=== PATIENT | female | born 2000 | race Caucasian/White ===

== ENCOUNTER 2023-12-16 15:03 | Emergency (ER) | payer SELFPAY ==
[2023-12-16 15:11] VITALS: BP 146/77
[2023-12-16 15:40] LABS: COVID-19 Antigen Negative (Negative)
--- NOTE | 2023-12-16 16:02 | ED.GENMED ---
History of Present Illness
General
Chief Complaint: Cold/Flu/URI Symptoms
Source: patient
Exam Limitations: none
Time Seen by Provider: 12/16/23 15:34
Nursing documentation reviewed up to this point in time: agreed with
History of Present Illness
History of Present Illness:
Patient to ED with complaint of cough, nasal congestion, fatigue, loss of appetite. Symptoms started on Tuesday. Denies fver/chills. States many co-workers have similar symptoms. Brought self to ED for eval.
Past History
Past History
ED Past Medical History: Asthma and Psychiatric (Anxiety, ADHD, depression)
ED Past Surgical History: None
Social History
Tobacco: Smoker
Alcohol: Occasional
Drug: None
Personal: Single
Living: with family
Review of Systems
Review of Systems
Allergies reviewed?: Yes
All Other Systems: ROS reviewed and negative except as documented in HPI and ROS
Constitutional: Reports fatigue
EENT: Reports runny nose
Respiratory: Reports cough
Cardiac: Reports no symptoms
ABD/GI: Reports anorexia
: Reports no symptoms
Musculoskeletal: Reports no symptoms
Skin: Reports no symptoms
Neurological: Reports no symptoms
Psychiatric: Reports no symptoms
Phy Exam
General Physical Exam
General Presentation: well appearing and mild distress
General age: appears stated age
General Skin: warm and dry
General Habitus: normal
General Mental: alert
General Hydration: appears well hydrated
ENT Exam
ENT Exam: EOMI, pharynx normal, neck supple, swallowing well and TM's abnormal (Left TM red, opacified.)
Cardiovascular Exam
Cardiovascular Exam: regular rate/rhythm and no edema
Pulmonary Exam
Pulmonary Exam: lungs clear and no respiratory distress
Musculoskeletal Exam
Musculoskeletal Exam: full ROM and neuro vasc intact
Skin Exam
Skin Exam: normal color and warm/dry
Psychiatric Exam
Psychiatric Exam: normal mood/affect
Course
Orders/Labs/Results
Orders:
Orders
12/16/23 15:13
CR Chest - 2 Views Urgent
Comment:
Reason For Exam: cough
12/16/23 15:16
COVID-19 Antigen Urgent
Source: Nasal Swab
Influenza A+B Rapid Molecular Urgent
ALLAN Source: Nasal Swab
Specimen Description:
12/16/23 15:57
Amoxicillin [Amoxil] 500 mg PO NOW STA
Vital Signs
Initial and Last Documented VS:
Initial Vital Signs
Temp Pulse Resp BP Pulse Ox
98.3 F 80 18 146/77 96
12/16/23 15:11 12/16/23 15:11 12/16/23 15:11 12/16/23 15:11 12/16/23 15:11
Last Documented Vital Signs
Temp Pulse Resp BP Pulse Ox
98.3 F 80 18 146/77 96
12/16/23 15:11 12/16/23 15:11 12/16/23 15:11 12/16/23 15:11 12/16/23 15:11
*Radiology
Radiology exam reviewed: radiology read reviewed
*Pulse Oximetry
Patient hypoxic: no
*Critical Care Note
Total Time (30-74mins, 75-104mins- exclusive of procedures): Not Applicable
ED Attending Note
-
Portions of this chart may have been created with voice recognition software.� Occasional wrong word or��sound alike� substitutions may have occurred due to the inherent limitations of voice recognition software.
Discharge Plan
Departure
Patient Disposition: Home (Routine Discharge)
Date of Disposition: 12/16/23
Time of Disposition: 15:57
Patient with high blood pressure during this ER visit?: No
Condition: Good
Covid-19: Not Applicable
Discharge Problem:
URI (upper respiratory infection), Otitis media
Instructions: Ear Infections in Adults (DC), Upper Respiratory Infection - Adult
Prescriptions:
New
amoxicillin 500 mg capsule
500 mg PO Q8H Qty: 20 0RF
No Action
Sara
1 tab PO DAILY
albuterol sulfate [Ventolin HFA] 90 MCG/PUFF HFA aerosol inhaler
2 puff inhalation PRN PRN (Reason: asthma)
Qvar
1 puff inhalation BID
prednisolone sodium phosphate 15 MG/5 ML solution
45 mg PO DAILY Qty: 75 0RF
albuterol sulfate 2.5 MG/3 ML solution for nebulization
2.5 mg inhalation R Q4HPRN PRN (Reason: asthma) Qty: 30 0RF
oxycodone 5 MG tablet
5 mg PO Q4HPRN PRN (Reason: pain) Qty: 10 0RF
prednisone 10 mg Tablet
See Rx Instructions .ROUTE .COMPLEX Qty: 30 0RF
Rx Instructions:
Take By Mouth:
40 mg daily x3 days, 30 mg daily x3 days,
20 mg daily x3 days, 10 mg daily x3 days.
albuterol sulfate 2.5 mg /3 mL (0.083 %) solution for nebulization
2.5 mg inhalation QID PRN (Reason: shortness of breath or wheezing) Qty: 180 0RF
albuterol sulfate [ProAir HFA] 90 mcg/actuation Hfa Aerosol Inhaler
2 puff INHALATION R Q4HPRN PRN (Reason: cough) Qty: 8.5 0RF
Referrals:
Dasha Paz DO [Family Provider] - Follow up in 2-3 days
Stand Alone Forms: Return to Work
Interventions
Interventions:
*General Assessment Last Done: 12/16/23 15:11
Discharge Date and Time
Print Language: [place]
[2023-12-16] MEDS: AMOXIL 500 MG PO (16:13)
[2023-12-16 16:37] VITALS: BP 143/77
[2023-12-16 16:39] VITALS: BP 143/77
== END 2023-12-16 16:40 | disposition home or self-care (01) ==
LOC: EMR 15:03
PROVIDERS: EMERGENCY PHYSICIAN Emergency Medicine; FAMILY PHYSICIAN Family Medicine
DX: J06.9 Acute upper respiratory infection, unspecified (principal); H66.90 Otitis media, unspecified, unspecified ear; Z11.52 Encounter for screening for COVID-19; F17.200 Nicotine dependence, unspecified, uncomplicated
CPT/HCPCS: 99284; 71046; 87502; 87811

== ENCOUNTER 2024-05-01 01:50 | Emergency (ER) | payer SELFPAY ==
[2024-05-01 01:56] VITALS: BP 119/78
[2024-05-01 04:16] LABS: % Basophils 0.4 % (0-2); % Eosinophils 0.8 % (0-6); % Immature Granulocytes 0.3 % (0-0.5); % Lymphocytes 10.5 % (20.5-51.1); % Monocytes 5.4 % (1.7-9.3); % Neutrophils 82.6 % (42.2-75.2); Absolute Basophils 0.1 10^3/uL (0-0.2); Absolute Eosinophils 0.1 10^3/uL (0-0.7); Absolute Lymphocytes 1.3 10^3/uL (1.2-3.4); Absolute Monocytes 0.7 10^3/uL (0.1-0.6); Absolute Neutrophils 9.9 10^3/uL (1.4-6.5); Hemoglobin 15.6 g/dL (12.0-16.0); Mean Corp Hgb Conc. 33.9 g/dL (33.0-37.0); Mean Corpuscular Hgb 29.2 pg (27.0-31.0); Mean Corpuscular Volume 86.1 fL (81.0-99.0); Mean Platelet Volume 10.4 fL (7.4-10.4); Nucleated Red Blood Cells % 0 %; Platelet Count 223 10^3/uL (130-400); Red Blood Cell Count 5.34 10^6/uL (4.20-5.40)
[2024-05-01 04:20] LABS: ALT (SGPT) 97 U/L (0-35); AST (SGOT) 173 U/L (14-36); Alkaline Phosphatase 113 U/L (38-126); Blood Urea Nitrogen 15 mg/dl (7-17); Calcium 9.5 mg/dl (8.4-10.2); Carbon Dioxide 22 mmol/L (22-30); Chloride 105 mmol/L (98-107); Glucose 119 mg/dl (70-99); Potassium 4.3 mmol/L (3.5-5.1); Sodium 140 mmol/L (135-145); Total Bilirubin 0.8 mg/dl (0.2-1.3); Total Protein 8.1 g/dl (6.3-8.2); eGFR > 60.00
[2024-05-01 05:11] VITALS: BP 128/80
--- NOTE | 2024-05-01 06:20 | ED.GENMED ---
History of Present Illness
General
Chief Complaint: Chest Pain
Source: patient
Exam Limitations: none
Time Seen by Provider: 05/01/24 06:19
Nursing documentation reviewed up to this point in time: agreed with
History of Present Illness
History of Present Illness:
24 yo female presents to the emergency department complaining of epigastric pain and vomiting last night at 1230am. She still has some pain and burning. Currently on menstrual cycle. She uses marijuana daily.
Past History
Past History
ED Past Medical History: Asthma and Psychiatric (Anxiety, ADHD, depression)
ED Past Surgical History: Tonsilectomy (and adenoids) and Other (bilateral ear tubes)
Social History
Tobacco: Smoker
Alcohol: Occasional
Drug: None
Personal: Single
Living: with family
Review of Systems
Review of Systems
Allergies reviewed?: Yes
All Other Systems: Not applicable
Constitutional: Reports no symptoms
EENT: Reports no symptoms
Respiratory: Reports no symptoms
Cardiac: Reports chest pain
ABD/GI: Reports abdominal pain, nausea and vomiting
: Reports no symptoms
Musculoskeletal: Reports no symptoms
Skin: Reports no symptoms
Neurological: Reports no symptoms
Endocrine: Reports no symptoms
Hematologic/Lymphatic: Reports no symptoms
Psychiatric: Reports no symptoms
Phy Exam
Physical Exam
Physical Exam:
Physical Exam
General: no apparent distress, not acutely ill
Neck: supple. no meningeal signs. normal posterior pharynx
Heart: s1/s2 regular rate and rhythm, no murmur. equal radial
pulses.
HEENT: Pupils equal round reactive to light, EOMI
Lungs: no acute respiratory distress. clear bilaterally
Abdomen: normal bowel sounds. not tender. no CVAT
Neuro: alert and oriented. no focal neurological deficits cranial nerves II through XII intact
Skin: no rash
Psychiatric: well kept. interactive and cooperative
Extremities: no edema. no calf tenderness. negative homans. good distal pulses
Scores
Heart Score for Chest Pain Patients
STEMI patient?: Not applicable
Course
Orders/Labs/Results
Orders:
Orders
05/01/24 02:00
EKG [Electrocardiogram (*1)] Urgent
Reason for Study: Chest Pain
EKG- Treatment ONCE
05/01/24 03:27
CBC/With Diff [Complete Blood Count/With Diff] Urgent
CMP [Comprehensive Metabolic Panel] Urgent
Lipase Urgent
Comment: ADD ON
05/01/24 06:19
Add On- LAB Urgent
Tests Added?: lipase
05/01/24 06:38
US Abdomen Complete/Upper Urgent
Comment:
Reason For Exam: epigastric pain, vomiting
05/01/24 06:39
Ondansetron Orally Disint [Zofran Odt (Orally Disintegrating)] 4 mg PO NOW STA
05/01/24 07:34
Capsaicin [Zostrix-Hp 0.075% Cream] See Dose Instructions TOPICAL STAT STA
Abnormal Lab Results
05/01/24
03:27
WBC 12.0 H 10^3/uL
(4.8-10.8)
Absolute Neuts (auto) 9.9 H 10^3/uL
(1.4-6.5)
Absolute Monos (auto) 0.7 H 10^3/uL
(0.1-0.6)
Neutrophils % 82.6 H %
(42.2-75.2)
Lymphocytes % 10.5 L %
(20.5-51.1)
Glucose 119 H mg/dl
(70-99)
AST 173 H U/L
(14-36)
ALT 97 H U/L
(0-35)
05/01/24 03:27
05/01/24 03:27
Vital Signs
Initial and Last Documented VS:
Initial Vital Signs
Pulse Resp BP Pulse Ox
89 20 119/78 98
05/01/24 01:56 05/01/24 01:56 05/01/24 01:56 05/01/24 01:56
Last Documented Vital Signs
Pulse Resp BP Pulse Ox
74 23 128/80 97
05/01/24 07:39 05/01/24 07:39 05/01/24 05:11 05/01/24 07:47
MDM/Problems Addressed
Differential Diagnosis Includes:
Cholecystitis, cannabis hyperemesis, viral illness, medication reaction
MDM/Problems Addressed:
24-year-old female with epigastric pain, nausea vomiting, no signs pancreatitis or cholecystitis. Improved after capsaicin and Zofran.
Chronic conditions affecting care: Asthma
*Radiology
Radiology exam reviewed: radiology read reviewed (Ultrasound abdomen no acute finding)
*Pulse Oximetry
Patient hypoxic: no
*EKG
Interpreted by ED Provider?: Yes
EKG Intrepretation Date: 05/01/24
EKG Intrepretation Time: 02:06
Interpretation: normal
Comparison EKG: no changes
Heart Rate: 74
Rate: normal
Rhythm: sinus
[place]: normal axis
Interval: normal interval
QRS Pattern: normal QRS
Ischemia: no ischemia
*Critical Care Note
Total Time (30-74mins, 75-104mins- exclusive of procedures): Not Applicable
Data Reviewed
Further Testing Considered But Not Given:
CT abdomen pelvis not indicated
Patient Management
Social determinants of health affecting care: Living situation, Substance abuse (Marijuana) and Strong social support
ED Attending Note
-
Portions of this chart may have been created with voice recognition software.� Occasional wrong word or��sound alike� substitutions may have occurred due to the inherent limitations of voice recognition software.
Discharge Plan
Departure
Patient Disposition: Home (Routine Discharge)
Date of Disposition: 05/01/24
Time of Disposition: 09:21
Patient with high blood pressure during this ER visit?: Yes
Condition: Good
Discharge Problem:
Nausea & vomiting, Abdominal pain
Instructions: Cannabis hyperemesis syndrome, Abdominal pain in adults - Discharge instructions, Acute Nausea and Vomiting
Prescriptions:
New
ondansetron 4 mg tablet,disintegrating
4 mg PO Q8H PRN (Reason: nausea and vomiting) 4 Days Qty: 7 0RF
No Action
Sara
1 tab PO DAILY
albuterol sulfate [Ventolin HFA] 90 MCG/PUFF HFA aerosol inhaler
2 puff inhalation PRN PRN (Reason: asthma)
Qvar
1 puff inhalation BID
prednisolone sodium phosphate 15 MG/5 ML solution
45 mg PO DAILY Qty: 75 0RF
albuterol sulfate 2.5 MG/3 ML solution for nebulization
2.5 mg inhalation R Q4HPRN PRN (Reason: asthma) Qty: 30 0RF
oxycodone 5 MG tablet
5 mg PO Q4HPRN PRN (Reason: pain) Qty: 10 0RF
prednisone 10 mg Tablet
See Rx Instructions .ROUTE .COMPLEX Qty: 30 0RF
Rx Instructions:
Take By Mouth:
40 mg daily x3 days, 30 mg daily x3 days,
20 mg daily x3 days, 10 mg daily x3 days.
albuterol sulfate 2.5 mg /3 mL (0.083 %) solution for nebulization
2.5 mg inhalation QID PRN (Reason: shortness of breath or wheezing) Qty: 180 0RF
albuterol sulfate [ProAir HFA] 90 mcg/actuation Hfa Aerosol Inhaler
2 puff INHALATION R Q4HPRN PRN (Reason: cough) Qty: 8.5 0RF
amoxicillin 500 mg capsule
500 mg PO Q8H Qty: 20 0RF
Referrals:
Dasha Paz, [Family Provider] - Call in 1-3 days for appt
Stand Alone Forms: Return to Work
Activity Restrictions/Additional Instructions:
Return for any concerns. Recommend stopping use of marijuana.
Interventions
Interventions:
*Risk Screen - Suicide Last Done: 05/01/24 01:56
*General Assessment Last Done: 05/01/24 01:56
*Neglect/Abuse Screening Last Done: 05/01/24 01:56
ED- Fall Risk Assessment Last Done: 05/01/24 07:47
*ED COVID-19 Vaccine History Last Done: 05/01/24 07:54
ED- Cardiac Assessment Last Done: 05/01/24 07:47
Discharge Date and Time
Print Language: PARAG[place]
[2024-05-01 07:09] LABS: Lipase 110 U/L (23-300)
[2024-05-01 07:37] VITALS: BMI 34.3
[2024-05-01] MEDS: ZOFRAN ODT (ORALLY DISINTEGRATING) 4 MG PO (07:56)
[2024-05-01 08:00] VITALS: BP 119/64
[2024-05-01] MEDS: ZOSTRIX-HP 0.075% CREAM 1 APPLIC TOPICAL (08:03)
[2024-05-01 09:00] VITALS: BP 112/64
[2024-05-01 10:17] LABS: Urine Albumin 1+ (Neg - Trace); Urine Bilirubin Negative (Negative); Urine Character Slightly Cloudy (Clear); Urine Color Yellow; Urine Glucose Negative (Negative); Urine Ketone Negative (Negative); Urine Leukocyte Negative (Negative); Urine Nitrite Negative (Negative); Urine Occult Blood 4+ (Negative); Urine Urobilinogen 2+ (Neg - 1+)
--- NOTE | 2024-05-01 10:28 | EDRN ---
Discharge instructions given to patient by KEV Low.
[2024-05-01 10:51] LABS: Urine Bacteria Few (Negative); Urine Red Blood Cell 0-2 /HPF (0-2); Urine Squamous Cell 21-25 /LPF (Few)
== END 2024-05-01 10:15 | disposition home or self-care (01) ==
LOC: EMR 01:50
PROVIDERS: Emergency Medicine; EMERGENCY PHYSICIAN Emergency Medicine; FAMILY PHYSICIAN Family Medicine
DX: R11.2 Nausea with vomiting, unspecified (principal); R10.13 Epigastric pain; F12.90 Cannabis use, unspecified, uncomplicated; F17.200 Nicotine dependence, unspecified, uncomplicated; J45.909 Unspecified asthma, uncomplicated
CPT/HCPCS: 99284; 76700; 80053; 81003; 81015; 83690; 85025; 93005

== ENCOUNTER 2024-12-07 11:06 | Emergency (ER) | payer OTHER, SELFPAY ==
[2024-12-07 11:14] VITALS: BP 120/84
[2024-12-07 11:29] VITALS: BMI 34.0
[2024-12-07 11:43] VITALS: BP 154/89
--- NOTE | 2024-12-07 11:58 | ED.GENMED ---
History of Present Illness
<Estefania Varma PA-C - Last Filed: 12/08/24 09:08>
General
Chief Complaint: Chest Pain
Source: patient
Exam Limitations: none
Time Seen by Provider: 12/07/24 11:23
Nursing documentation reviewed up to this point in time: agreed with
History of Present Illness
History of Present Illness:
see MDM
Past History
<FORTINO Dawson Last Filed: 12/08/24 09:08>
Past History
ED Past Medical History: Asthma and Psychiatric (Anxiety, ADHD, depression)
ED Past Surgical History: Tonsilectomy (and adenoids) and Other (bilateral ear tubes)
Social History
Tobacco: Smoker
Alcohol: Occasional
Drug: None
Personal: Single
Living: with family
Phy Exam
<Estefania Varma PA-C - Last Filed: 12/08/24 09:08>
Physical Exam
Physical Exam:
GENERAL: Alert , in no apparent distress
EYE: pupils equal and reactive
NECK: Supple
ENT: b/l TM s clear, bilateral nasal turbinates are erythematous and boggy, pharynx erythematous but no tonsillar hypertrophy or exudates
CARDIAC: Regular rate and rhythm, no edema
LUNGS: Bilateral end expiratory wheezes, no acute respiratory distress, no rales/rhonchi, occ cough
Chest wall nontender
ABDOMEN: Soft, without focal tenderness, no r/g, no cvat, normal bowel sounds
NEUROLOGICAL: Alert and oriented, no focal neuro deficits
SKIN: Warm and dry, skin intact.
MUSCULOSKELETAL: No edema, well perfused.
PSYCH: Normal and appropriate interaction.
Scores
<Jonatan Chand PA-C - Last Filed: 12/07/24 16:52>
Heart Score for Chest Pain Patients
STEMI patient?: Not applicable
Sepsis
<Estefania Varma PA-C - Last Filed: 12/08/24 09:08>
Sepsis Screen
Sepsis Screen: Sepsis Ruled Out
Date: 12/08/24
Time: 09:08
<Jonatan Chand PA-C - Last Filed: 12/07/24 16:52>
Sepsis Screening
Sepsis Assessment: Sepsis Ruled Out
Sepsis Screen
Sepsis Screen: Sepsis Ruled Out
Date: 12/07/24
Time: 16:52
Course
<Estefania Varma PA-C - Last Filed: 12/08/24 09:08>
Orders/Labs/Results
Orders:
Orders
12/07/24 11:07
EKG [Electrocardiogram (*1)] Urgent
Reason for Study: Chest Pain
12/07/24 11:08
EKG- Treatment ONCE
12/07/24 11:55
CT Chest PE Study Urgent
Comment:
Reason For Exam: pleuritic L cp, tachy, hypoxic
Albuterol Nebs [Ventolin Nebules] 2.5 mg INH R NOW STA
Dexamethasone Sod Phosphate [Decadron] 10 mg IV NOW STA
Ketorolac [Toradol] 30 mg IV NOW STA
12/07/24 11:56
Test Result ONCE
12/07/24 12:08
Complete Blood Count/With Diff Urgent
Comprehensive Metabolic Panel Urgent
HCG, Serum Qualitative Screen Urgent
Troponin I Urgent
12/07/24 14:58
Albuterol Nebs [Ventolin Nebules] 2.5 mg INH R NOW STA
Abnormal Lab Results
12/07/24
12:08
WBC 11.5 H 10^3/uL
(4.8-10.8)
MPV 10.6 H fL
(7.4-10.4)
Absolute Neuts (auto) 9.5 H 10^3/uL
(1.4-6.5)
Absolute Lymphs (auto) 1.1 L 10^3/uL
(1.2-3.4)
Absolute Monos (auto) 0.7 H 10^3/uL
(0.1-0.6)
Neutrophils % 82.9 H %
(42.2-75.2)
Lymphocytes % 9.5 L %
(20.5-51.1)
Total Protein 8.4 H g/dl
(6.3-8.2)
Albumin 5.1 H g/dl
(3.5-5.0)
12/07/24 12:08
12/07/24 12:08
Vital Signs
Initial and Last Documented VS:
Initial Vital Signs
Temp Pulse Resp BP Pulse Ox
36.9 C 108 22 120/84 90
12/07/24 11:14 12/07/24 11:14 12/07/24 11:14 12/07/24 11:14 12/07/24 11:14
Last Documented Vital Signs
Temp Pulse Resp BP Pulse Ox
36.9 C 93 18 127/71 91
12/07/24 11:14 12/07/24 15:30 12/07/24 15:30 12/07/24 15:00 12/07/24 15:15
<Jonatan Chand PA-C - Last Filed: 12/07/24 16:52>
Orders/Labs/Results
Orders:
Orders
12/07/24 11:07
EKG [Electrocardiogram (*1)] Urgent
Reason for Study: Chest Pain
12/07/24 11:08
EKG- Treatment ONCE
12/07/24 11:55
CT Chest PE Study Urgent
Comment:
Reason For Exam: pleuritic L cp, tachy, hypoxic
Albuterol Nebs [Ventolin Nebules] 2.5 mg INH R NOW STA
Dexamethasone Sod Phosphate [Decadron] 10 mg IV NOW STA
Ketorolac [Toradol] 30 mg IV NOW STA
12/07/24 11:56
Test Result ONCE
12/07/24 12:08
Complete Blood Count/With Diff Urgent
Comprehensive Metabolic Panel Urgent
HCG, Serum Qualitative Screen Urgent
Troponin I Urgent
12/07/24 14:58
Albuterol Nebs [Ventolin Nebules] 2.5 mg INH R NOW STA
Abnormal Lab Results
12/07/24
12:08
WBC 11.5 H 10^3/uL
(4.8-10.8)
MPV 10.6 H fL
(7.4-10.4)
Absolute Neuts (auto) 9.5 H 10^3/uL
(1.4-6.5)
Absolute Lymphs (auto) 1.1 L 10^3/uL
(1.2-3.4)
Absolute Monos (auto) 0.7 H 10^3/uL
(0.1-0.6)
Neutrophils % 82.9 H %
(42.2-75.2)
Lymphocytes % 9.5 L %
(20.5-51.1)
Total Protein 8.4 H g/dl
(6.3-8.2)
Albumin 5.1 H g/dl
(3.5-5.0)
12/07/24 12:08
12/07/24 12:08
Vital Signs
Initial and Last Documented VS:
Initial Vital Signs
Temp Pulse Resp BP Pulse Ox
36.9 C 108 22 120/84 90
12/07/24 11:14 12/07/24 11:14 12/07/24 11:14 12/07/24 11:14 12/07/24 11:14
Last Documented Vital Signs
Temp Pulse Resp BP Pulse Ox
36.9 C 93 18 127/71 91
12/07/24 11:14 12/07/24 15:30 12/07/24 15:30 12/07/24 15:00 12/07/24 15:15
<Estefania Varma PA-C - Last Filed: 12/08/24 09:08>
MDM/Problems Addressed
Differential Diagnosis Includes:
see MDM
MDM/Problems Addressed:
Note:
CHIEF COMPLAINT(S)
Chest pain, sore throat, sinus congestion.
HISTORY OF PRESENT ILLNESS
The patient is a 24-year-old female with a history of asthma who presents with chest discomfort. The patient reports waking up the previous day, experiencing symptoms typical of her recurrent ear infections and sore throat. Soon after these symptoms
progressed to include sinus congestion. she went to and was tested for flu/covid/mono/strep which were neg.
pt has been coughing, using her albuterol neb. but then this morning, starting around 6:00 AM and worsening as the morning progressed. The pain is aggravated by deep breathing, and he reports experiencing shortness of breath but denies any history
of prolonged immobility, recent long travel, blood clot history, or control usage. she also denies past episodes of chest pain of this kind.
The patient also noted a low-grade fever, reaching up to 99�F, together with episodes of sweats and chills. Historically, she experiences frequent sinus issues since childhood, was diagnosed with ear infections requiring tubes.
The patients chest discomfort is noted to be new, separate from his known asthma-related chest tightness.
He performs albuterol nebulizer treatments every four hours and reports allergic reactions to certain formulations in the past, specifically to DuoNeb.
The patient is concerned about the possibility of a blood clot due to the new onset and nature of his chest pain.
FAMILY HISTORY
no sig CAD family history; no PE in family
MEDICATIONS
The patient uses albuterol for nebulizer treatments every four hours.
PE:
see above
PLAN
Consider evaluation for pulmonary embolism or other possible causes of new chest discomfort given the patient�s history.
Monitor and manage asthma symptoms with regular albuterol treatments, decadron; avoid usage of medications known to cause allergic reaction (DuoNeb).
DIFFERENTIAL DIAGNOSIS
The Differential Diagnosis includes, in no particular order and is not limited to:
1. Acute sinusitis
2. Asthma exacerbation
3. Pleurisy (pleuritis)
4. Costochondritis
5. Viral upper respiratory tract infection
6. Gastroesophageal reflux disease
7. Panic attack or anxiety
8. Pulmonary embolism
9. Myocarditis
10. Pericarditis
24-year-old female with history of asthma, no intubations presents for 2 days of URI symptoms of subjective fevers chills, nasal congestion, ear pressure and a cough but then woke up with chest discomfort around 6 AM which is pleuritic and she feels
like the pain radiates to her left arm. It is nonexertional and constant. She had COVID and flu mono and strep testing yesterday and urgent care which were all negative. She has never had a blood clot or had any risk factors for blood clots.
On exam the patient was not tachypneic but was hypoxic with a pulse ox of 90% initially, came up to 92% here, she has a subtle ST segment abnormality in the inferior leads but no diffuse ST elevation consistent with pericarditis
And she was mildly tachycardic on arrival.
She is wheezing and I do suspect that all of her symptoms are related to a viral URI triggering her asthma however with the pleuritic chest discomfort, borderline hypoxia, tachycardia, could not PERC the patient out
Thus I did order a CT PE study. She was given an albuterol neb and Decadron in the meantime.
Plan is to dispo per the CT result, may need steroids for asthma exacerbation. Consider myocarditis as a possible diagnosis but I suspect mostly she has costochondritis or pleurisy from her URI.
<Estefania Varma PA-C - Last Filed: 12/08/24 09:08>
*Pulse Oximetry
SaO2: 90
Oxygen Mode of Delivery: Room air
<Jonatan Chand PA-C - Last Filed: 12/07/24 16:52>
*Pulse Oximetry
Patient hypoxic: no
*Critical Care Note
Total Time (30-74mins, 75-104mins- exclusive of procedures): Not Applicable
<Jonatan Chand PA-C - Last Filed: 12/07/24 16:52>
Update Note
Update Note:
Assumed care of pt at shift change 1500, awaiting CT report. Pt reporting improved dyspnea at this time. REceived IV steroids
CT shows no airspace disease or PE. Will d/c with repeat dose of decadron to use in 48 hrs should symptoms persist
ED Attending Note
<Estefania Varma PA-C - Last Filed: 12/08/24 09:08>
-
Portions of this chart may have been created with voice recognition software.� Occasional wrong word or��sound alike� substitutions may have occurred due to the inherent limitations of voice recognition software.
Discharge Plan
Departure
Patient Disposition: Home (Routine Discharge)
Date of Disposition: 12/07/24
Time of Disposition: 15:19
Patient with high blood pressure during this ER visit?: No
Discharge Problem:
Asthma exacerbation
Instructions: Asthma in adults - ED (DC)
Prescriptions:
New
dexamethasone 4 mg tablet
8 mg PO ONCE Qty: 2 0RF
No Action
Sara
1 tab PO DAILY
albuterol sulfate [Ventolin HFA] 90 MCG/PUFF HFA aerosol inhaler
2 puff inhalation PRN PRN (Reason: asthma)
Qvar
1 puff inhalation BID
prednisolone sodium phosphate 15 MG/5 ML solution
45 mg PO DAILY Qty: 75 0RF
albuterol sulfate 2.5 MG/3 ML solution for nebulization
2.5 mg inhalation R Q4HPRN PRN (Reason: asthma) Qty: 30 0RF
oxycodone 5 MG tablet
5 mg PO Q4HPRN PRN (Reason: pain) Qty: 10 0RF
prednisone 10 mg Tablet
See Rx Instructions .ROUTE .COMPLEX Qty: 30 0RF
Rx Instructions:
Take By Mouth:
40 mg daily x3 days, 30 mg daily x3 days,
20 mg daily x3 days, 10 mg daily x3 days.
albuterol sulfate 2.5 mg /3 mL (0.083 %) solution for nebulization
2.5 mg inhalation QID PRN (Reason: shortness of breath or wheezing) Qty: 180 0RF
albuterol sulfate [ProAir HFA] 90 mcg/actuation Hfa Aerosol Inhaler
2 puff INHALATION R Q4HPRN PRN (Reason: cough) Qty: 8.5 0RF
amoxicillin 500 mg capsule
500 mg PO Q8H Qty: 20 0RF
ondansetron 4 mg tablet,disintegrating
4 mg PO Q8H PRN (Reason: nausea and vomiting) 4 Days Qty: 7 0RF
Referrals:
Dasha Paz DO [Family Provider, Family Practice]
Interventions
Interventions:
*Risk Screen - Suicide Last Done: 12/07/24 11:14
*General Assessment Last Done: 12/07/24 11:14
*Neglect/Abuse Screening Last Done: 12/07/24 11:29
*ED- Fall Risk Assessment Last Done: 12/07/24 11:29
*ED COVID-19 Vaccine History Last Done: 12/07/24 11:29
*Nursing Disposition Last Done: 12/07/24 15:45
ED- Cardiac Assessment Last Done: 12/07/24 11:29
Discharge Date and Time
Discharge Date/Time: 12/07/24 15:47
Print Language: SURINAM[place]
[2024-12-07 12:00] VITALS: BP 153/88
[2024-12-07] MEDS: TORADOL 30 MG IV (12:12)
[2024-12-07] MEDS: VENTOLIN NEBULES 2.5 MG INH ×2 (12:13→15:19)
[2024-12-07] MEDS: DECADRON 10 MG IV (12:13)
[2024-12-07 12:25] LABS: Hematocrit 45.6 % (37.0-47.0); Hemoglobin 15.4 g/dL (12.0-16.0); Mean Corp Hgb Conc. 33.8 g/dL (33.0-37.0); Mean Corpuscular Volume 85.1 fL (81.0-99.0); Nucleated Red Blood Cells % 0 %; Platelet Count 224 10^3/uL (130-400); Red Cell Dist. Width 12.3 % (11.5-14.5)
[2024-12-07 12:48] LABS: HCG, Serum Qualitative Screen Negative
[2024-12-07 12:59] LABS: ALT (SGPT) 28 U/L (0-35); AST (SGOT) 27 U/L (14-36); Albumin 5.1 g/dl (3.5-5.0); Alkaline Phosphatase 78 U/L (38-126); Blood Urea Nitrogen 8 mg/dl (7-17); Calcium 9.9 mg/dl (8.4-10.2); Carbon Dioxide 22 mmol/L (22-30); Chloride 106 mmol/L (98-107); Estimated Creatinine Clearance > 125 ml/min; Glucose 92 mg/dl (70-99); Potassium 4.0 mmol/L (3.5-5.1); Sodium 140 mmol/L (135-145); Total Protein 8.4 g/dl (6.3-8.2); Troponin I < 0.012 ng/ml; eGFR > 60.00
[2024-12-07 13:00] VITALS: BP 123/68
[2024-12-07 14:00] VITALS: BP 123/54
[2024-12-07 15:00] VITALS: BP 127/71
== END 2024-12-07 15:47 | disposition home or self-care (01) ==
LOC: EMR 11:06
PROVIDERS: Physician Assistant; EMERGENCY PHYSICIAN Emergency Medicine; FAMILY PHYSICIAN Family Medicine
DX: R07.89 Other chest pain (principal); J45.901 Unspecified asthma with (acute) exacerbation; F41.9 Anxiety disorder, unspecified; F90.9 Attention-deficit hyperactivity disorder, unspecified type; F17.200 Nicotine dependence, unspecified, uncomplicated; J98.4 Other disorders of lung
CPT/HCPCS: 99284; 94640; 96374; 96375; 71275; 80053; 84484; 84703; 85025; 93005; Q9967